=== PATIENT | male | born 1975 | race Caucasian/White ===

== ENCOUNTER 2016-06-04 22:27 | Emergency (ER) | payer OTHER ==
--- NOTE | 2016-06-04 23:17 | ED CLINICAL REPORT ---
Clinical Report - Physicians/Mid Levels [address] [place] [address] 06/04/2016 22:29 Patient: SAMEER FLORES Time Seen: 2305. Arrived- By private vehicle. Historian- patient. HISTORY OF PRESENT ILLNESS Chief Complaint: Injury to left knee. The injury happened today. Occurred at home. The patient sustained a laceration from a sharp edge. Patient is not experiencing pain. Patient denies injury to the head or neck. No other injury. (states he accidentally cut himself.). REVIEW OF SYSTEMS The patient sustained a laceration. No weakness, numbness or suspected foreign body. All systems otherwise negative, except as recorded above. PAST HISTORY See nurses notes. Tetanus immunization status is up-to-date. Medications: None. Allergies: Sulfa Antibiotics. ADDITIONAL NOTES The nursing notes have been reviewed. PHYSICAL EXAM Vital Signs: 06/04/2016 22:33 BP: 117/64. HR: 72. RR: 15. O2 saturation: 97%. Temp: 98.5 F. Ferguson-Stanford pain scale: 4/10. Blood pressure normal. Oxygen saturation normal. Appearance: Alert. Oriented X3. No acute distress. CVS: Normal heart rate and rhythm. Heart sounds normal. Pulses normal. Respiratory: No respiratory distress. Breath sounds normal. Chest nontender. Skin: Skin intact. Skin warm and dry. Normal skin color. Normal skin turgor. Extremities: (full thickness laceration that is 0.5 cm in length over the tibial prominence. linear. regular shaped. no fb. no bleeding. wound edges approximate well at rest. no gross contamination. neurovasc intact distal to injury. no involvement of joint.). Extremities otherwise negative. Gait: Normal gait. Neuro, Vascular and Tendons: Vascular status intact. Sensation intact. Motor intact. Tendon function intact. No sensory deficit. Neuro: No motor deficit. No sensory deficit. CLINICAL IMPRESSION Single deep laceration.No foreign body present. INSTRUCTIONS Warnings: GENERAL WARNINGS: Return or contact your physician immediately if your condition worsens or changes unexpectedly, if not improving as expected, or if other problems arise. Specifically return if pain, vomiting, bleeding, breathing difficulty or fever. Your Current Medications: CONTINUE TAKING THE FOLLOWING MEDICATIONS: None*. OTC Medications: Acetaminophen (available over the counter): take according to label instructions. Motrin (available over the counter): take according to label instructions. Follow-up: Return to the emergency department as needed. Follow up with your doctor in three days. Reason for referral: recheck today's concerns. Summary of care provided to patient via paper. Screening today revealed the patient's blood pressure to be in the normal range. The patient should follow up with a primary care provider for blood pressure management. Understanding of the discharge instructions verbalized by patient. (Electronically signed by Skyler Baker Dr. 06/10/2016 17:58)
--- NOTE | 2016-06-04 23:17 | ED NURSING NOTES ---
Clinical Report - Nurses [facility] [address] [place] [address] 06/04/2016 22:29 [id number] Triage time 22:33. Acuity: LEVEL 4. Chief Complaint: INJURY TO LEFT KNEE. Alert. No acute distress. --22:36 Keila Burns R.N. 22:33 06/04/16. BP: 117/64. HR: 72. RR: 15. O2 saturation: 97%. Temp: 98.5 F (oral). Ferguson-Stanford pain scale: 4/10. --22:36 Keila Burns R.N. Weight: 77.1 kg stated. Height/Length: 68 inches Per Patient. BMI: 25.9. --22:36 Keila Burns R.N. Medications None. --22:33 Keila Burns R.N. Allergies Sulfa Antibiotics. --22:33 Keila Burns R.N. History Arrived by private vehicle. Historian: patient. Primary physician (Natropathic). 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 He sustained a laceration from a sharp edge. Treatment WEAVE DEFECT CHARTING CLERK: None. PAST MEDICAL HX: Tetanus status: up-to-date. SOCIAL HX: Never smoker. History of occasional drug use: marijuana. No alcohol use. NUTRITIONAL RISK ASSESSMENT: The nutritional risk assessment revealed no deficiencies. FUNCTIONAL ASSESSMENT: Functional assessment: no impairments noted. --22:36 Keila Burns R.N. ADDITIONAL SURGERIES: Tonsillectomy. --22:34 Keila Burns R.N. Interventions ID band on patient. To treatment room. --22:36 Keila Burns R.N. PHYSICAL ASSESSMENT Ambulatory to room. Patient gowned. GENERAL / NEURO / PSYCH: Oriented X 4. Alert. Appears in no acute distress. EXTREMITIES: Capillary refill is less than 2 seconds in the extremities. Left knee: laceration with controlled bleeding. SKIN: Skin is warm and dry. --22:37 Keila Burns R.N. NURSING PROGRESS NOTES Two patient identifiers checked. Call light placed in reach. Side rails up x 1. Bed placed in lowest position. Brakes of bed on. Patient ready for evaluation- chart flagged. --22:37 Keila Burns R.N. Wound cleansed with sterile saline. 1/" steri-strips applied to wound on left knee by nurse. ( Steri-strip care & instructions reviewed with pt, pt states understanding.). --23:12 Keila Burns R.N. DISPOSITION / DISCHARGE 23:22 06/04/16. Departure time: 23:Jun 04 2016. Condition at departure: improved and stable. The goals identified in the patient's plan of care were met. No learning barriers present. Patient verbalized understanding. Written instructions provided in [place]. The patient was discharged home and unaccompanied at time of discharge. He left the Emergency Department ambulatory and via private vehicle. Patient driving. FALL RISK ASSESSMENT: Fall risk assessment completed. No fall risk identified. --23:22 Brittany Ramos R.N. 22:33 06/04/16. BP: 117/64. HR: 72. RR: 15. O2 saturation: 97%. Temp: 98.5 F (oral). Ferguson-Stanford pain scale: 4/10. --23:22 Brittany Ramos R.N. Locked/Released at 06/04/2016 23:22 by Brittany Ramos R.N.
--- NOTE | 2016-06-04 23:17 | ED NURSING NOTES ---
Clinical Report - Nurses [facility] [address] [place] [address] 06/04/2016 22:29 [id number] Triage time 22:33. Acuity: LEVEL 4. Chief Complaint: INJURY TO LEFT KNEE. Alert. No acute distress. --22:36 Keila Burns R.N. 22:33 06/04/16. BP: 117/64. HR: 72. RR: 15. O2 saturation: 97%. Temp: 98.5 F (oral). Ferguson-Stanford pain scale: 4/10. --22:36 Keila Burns R.N. Weight: 77.1 kg stated. Height/Length: 68 inches Per Patient. BMI: 25.9. --22:36 Keila Burns R.N. Medications None. --22:33 Keila Burns R.N. Allergies Sulfa Antibiotics. --22:33 Keila Burns R.N. History Arrived by private vehicle. Historian: patient. 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 Treatment ARCHITECTURAL ASSOCIATE: None. PAST MEDICAL HX: Tetanus status: up-to-date. SOCIAL HX: Never smoker. History of occasional drug use: marijuana. No alcohol use. NUTRITIONAL RISK ASSESSMENT: The nutritional risk assessment revealed no deficiencies. FUNCTIONAL ASSESSMENT: Functional assessment: no impairments noted. --22:36 Keila Burns R.N. ADDITIONAL SURGERIES: Tonsillectomy. --22:34 Keila Burns R.N. Interventions ID band on patient. To treatment room. --22:36 Keila Burns R.N. PHYSICAL ASSESSMENT Ambulatory to room. Patient gowned. GENERAL / NEURO / PSYCH: Oriented X 4. Alert. Appears in no acute distress. EXTREMITIES: Capillary refill is less than 2 seconds in the extremities. Left knee: laceration with controlled bleeding. SKIN: Skin is warm and dry. --22:37 Keila Burns R.N. NURSING PROGRESS NOTES Two patient identifiers checked. Call light placed in reach. Side rails up x 1. Bed placed in lowest position. Brakes of bed on. Patient ready for evaluation- chart flagged. --22:37 Keila Burns R.N. Wound cleansed with sterile saline. 1/" steri-strips applied to wound on left knee by nurse. ( Steri-strip care & instructions reviewed with pt, pt states understanding.). --23:12 Keila Burns R.N. DISPOSITION / DISCHARGE 23:22 06/04/16. Departure time: 23:Jun 04 2016. Condition at departure: improved and stable. The goals identified in the patient's plan of care were met. No learning barriers present. Patient verbalized understanding. Written instructions provided in Turkmen. The patient was discharged home and unaccompanied at time of discharge. He left the Emergency Department ambulatory and via private vehicle. Patient driving. FALL RISK ASSESSMENT: Fall risk assessment completed. No fall risk identified. --23:22 Brittany Ramos R.N. 22:33 06/04/16. BP: 117/64. HR: 72. RR: 15. O2 saturation: 97%. Temp: 98.5 F (oral). Ferguson-Stanford pain scale: 4/10. --23:22 Brittany Ramos R.N. Locked/Released at 06/04/2016 23:22 by Brittany Ramos R.N.
--- NOTE | 2016-06-04 23:17 | ED ORDER SUMMARY ---
..... Patient: SAMEER FLORES OrderSheet [facility] VisitID: [id number] [place] [address] 41y, M Registration Date/Time: 06/04/2016 ORDER SHEET Weight: 77.1 kg (stated) Allergies: Sulfa Antibiotics GENERAL ORDERS: Wound Irrigation (apply steri-strips after irrigation.) (23:10 06/04/2016 Jayant Joseph verbal order read back to Guille Mejia) (23:10 Jayant PerezNSonali) Dress Wounds (steri strips) (23:15 06/04/2016 Guille Mejia) (23:15 Jayant Joseph) Irrigate Wounds (23:15 06/04/2016 Guille Mejia) (23:15 Jayant Grajeda.) MEDICATION ORDERS: IV FLUIDS: ORDER SHEET NOTES: [Electronically signed by Brittany Ramos R.N. (23:22 06/04/2016)] [Electronically signed by Skyler Baker Dr. (17:58 06/10/2016)] [Electronically locked/signed by Brittany Ramos R.N. (23:22 06/04/2016)]
--- NOTE | 2016-06-04 23:17 | ED ORDER SUMMARY ---
..... Patient: SAMEER FLORES OrderSheet [facility] VisitID: [id number] [place] [address] 41y, M Registration Date/Time: 06/04/2016 ORDER SHEET Weight: 77.1 kg (stated) Allergies: Sulfa Antibiotics GENERAL ORDERS: Wound Irrigation (apply steri-strips after irrigation.) (23:10 06/04/2016 Jayant Joseph verbal order read back to Guille Mejia) (23:10 Jayant PerezNSonali) Dress Wounds (steri strips) (23:15 06/04/2016 Guille Mejia) (23:15 Jayant Joseph) Irrigate Wounds (23:15 06/04/2016 Guille Mejia) (23:15 Jayant Grajeda.) MEDICATION ORDERS: IV FLUIDS: ORDER SHEET NOTES: [Electronically signed by Brittany Ramos R.N. (23:22 06/04/2016)] [Electronically signed by Skyler Baker Dr. (17:58 06/10/2016)] [Electronically locked/signed by Brittany Ramos R.N. (23:22 06/04/2016)]
--- NOTE | 2016-06-04 23:17 | ED CLINICAL REPORT ---
Clinical Report - Physicians/Mid Levels [facility] [address] [place] [address] 06/04/2016 22:29 Patient: SAMEER FLORES Time Seen: 2305. Arrived- By private vehicle. Historian- patient. HISTORY OF PRESENT ILLNESS Chief Complaint: Injury to left knee. The injury happened today. Occurred at home. The patient sustained a laceration from a sharp edge. Patient is not experiencing pain. Patient denies injury to the head or neck. No other injury. (states he accidentally cut himself.). REVIEW OF SYSTEMS The patient sustained a laceration. No weakness, numbness or suspected foreign body. All systems otherwise negative, except as recorded above. PAST HISTORY See nurses notes. Tetanus immunization status is up-to-date. Medications: None. Allergies: Sulfa Antibiotics. ADDITIONAL NOTES The nursing notes have been reviewed. PHYSICAL EXAM Vital Signs: 06/04/2016 22:33 BP: 117/64. HR: 72. RR: 15. O2 saturation: 97%. Temp: 98.5 F. Ferguson-Stanford pain scale: 4/10. Blood pressure normal. Oxygen saturation normal. Appearance: Alert. Oriented X3. No acute distress. CVS: Normal heart rate and rhythm. Heart sounds normal. Pulses normal. Respiratory: No respiratory distress. Breath sounds normal. Chest nontender. Skin: Skin intact. Skin warm and dry. Normal skin color. Normal skin turgor. Extremities: (full thickness laceration that is 0.5 cm in length over the tibial prominence. linear. regular shaped. no fb. no bleeding. wound edges approximate well at rest. no gross contamination. neurovasc intact distal to injury. no involvement of joint.). Extremities otherwise negative. Gait: Normal gait. Neuro, Vascular and Tendons: Vascular status intact. Sensation intact. Motor intact. Tendon function intact. No sensory deficit. Neuro: No motor deficit. No sensory deficit. CLINICAL IMPRESSION Single deep laceration.No foreign body present. INSTRUCTIONS Warnings: GENERAL WARNINGS: Return or contact your physician immediately if your condition worsens or changes unexpectedly, if not improving as expected, or if other problems arise. Specifically return if pain, vomiting, bleeding, breathing difficulty or fever. Your Current Medications: CONTINUE TAKING THE FOLLOWING MEDICATIONS: None*. OTC Medications: Acetaminophen (available over the counter): take according to label instructions. Motrin (available over the counter): take according to label instructions. Follow-up: Return to the emergency department as needed. Follow up with your doctor in three days. Reason for referral: recheck today's concerns. Summary of care provided to patient via paper. Screening today revealed the patient's blood pressure to be in the normal range. The patient should follow up with a primary care provider for blood pressure management. Understanding of the discharge instructions verbalized by patient. (Electronically signed by Skyler Baker Dr. 06/10/2016 17:58)
--- NOTE | 2016-06-10 17:58 | ED MED RECONCILIATION SUMMARY ---
Patient: SAMEER FLORES Medication Reconciliation Report [facility] VisitID: [id number] [address] [place] [address] 41y, M Registration Date/Time: 06/04/2016 Weight: 77.1 kg Height/Length: 68 in. BMI: 25.9 ALLERGIES: Sulfa Antibiotics The patient's Home Medications are listed below: NONE. The source(s) of the original Home Medication information: Not obtained. The following Medications were given to the patient in the Emergency Department: None. The following Medications were prescribed to the patient: Acetaminophen (available over the counter): take according to label instructions. -- Skyler Baker Dr. Motrin (available over the counter): take according to label instructions. -- Skyler Baker Dr.
--- NOTE | 2016-06-10 17:58 | ED DISCHARGE INSTRUCTIONS ---
Patient: SAMEER FLORES General Instructions [facility] VisitID: [id number] [place] [address] 41y, M Registration Date/Time: 06/04/2016 Single deep laceration.No foreign body present. INSTRUCTIONS Warnings: GENERAL WARNINGS: Return or contact your physician immediately if your condition worsens or changes unexpectedly, if not improving as expected, or if other problems arise. Specifically return if pain, vomiting, bleeding, breathing difficulty or fever. Your Current Medications: CONTINUE TAKING THE FOLLOWING MEDICATIONS: None*. OTC Medications: Acetaminophen (available over the counter): take according to label instructions. Motrin (available over the counter): take according to label instructions. Follow-up: Return to the emergency department as needed. Follow up with your doctor in three days. Reason for referral: recheck today's concerns. Summary of care provided to patient via paper. Screening today revealed the patient's blood pressure to be in the normal range. The patient should follow up with a primary care provider for blood pressure management. Understanding of the discharge instructions verbalized by patient. ADDITIONAL INFORMATION Laceration (All Closures) Alaceration is a cut through the skin. This will usually require stitches (sutures) or moses if it is deep. Minor cuts may be treated with a surgical tape closure orskin glue. Home care The following guidelines will help you care for your laceration at home: Extremity, face, or trunk wounds Keep the wound clean and dry. If a bandage was applied and it becomes wet or dirty, replace it. Otherwise, leave it in place for the first 24 hours. If stitches or moses were used, clean the wound daily. After removing the bandage, wash the area with soap and water. Use a wet cotton swab to loosen and remove any blood or crust that forms. The doctor may prescribe an antibiotic cream or ointment to prevent infection. Do not stop taking this medication until you have finished the prescribed course or the doctor tells you to stop. The doctor may also prescribe medications for pain. Follow the doctors instructions for taking these medications. You may remove the bandage to shower as usual after the first 24 hours, but do not soak the area in water (no swimming) until the stitches or moses are removed. If surgical tape was used, keep the area clean and dry. If it becomes wet, blot it dry with a towel. If skin glue was used, do not scratch, rub, or pick at the adhesive film. Do not place tape directly over the film. Do not apply liquid, ointment, or creams to the wound while the film is in place. Do not clean the wound with peroxide and do not apply ointments. Avoid activities that cause heavy sweating until the film has fallen off. Protect the wound from prolonged exposure to sunlight or tanning lamps. You may shower as usual but do not soak the wound in water (no baths or swimming). The film will fall off by itself in 510 days. Scalp wounds During the first two days, you may carefully rinse your hair in the shower to remove blood, glass or dirt particles. After two days, you may shower and shampoo your hair normally. Do not soak your scalp in the tub or go swimming until the stitches or moses have been removed. Talk with your doctor before applying any antibiotic ointment to the wound. Mouth wounds Eat soft foods to reduce pain. If the cut is inside of your mouth, clean by rinsing after each meal and at bedtime with a mixture of equal parts water and hydrogen peroxide (do not swallow!). Or, you can use a cotton swab to directly apply hydrogen peroxide onto the cut. Mouth wounds can be painful when eating. You may use an [id number] local numbing solution for pain relief. If this is not available, you may use any numbing solution for teething babies. You may apply this directly to the sores with a cotton-tip swab or with your finger. Follow-up care Follow up with your health care provider. Most skin wounds heal within ten days. Mouth and facial wounds heal within five days. However, even with proper treatment, a wound infection may sometimes occur. Therefore, you should check the wound daily for signs of infection listed below. Stitches should be removed from the face within five days; stitches and moses should be removed from other parts of the body within 714 days. If dissolving stitches were used in the mouth, these will fall out or dissolve without the need for removal. If tape closures were used, remove them yourself if they have not fallen off after 7 days. Ifskin glue was used, the film will fall off by itself in 510 days. When to seek medical care Get prompt medical attention if any of these occur: Bleeding not controlled by direct pressure Signs of infection, including increasing pain in the wound, increasing wound redness or swelling, or pus coming from the wound Fever of 100.4F (38C) or higher, or as directed by your health care provider Stitches or moses come apart or fall out or surgical tape falls off before 7 days Wound edges re-open You have been given the following additional information: Laceration, All (Electronically signed by Skyler Baker Dr. 06/10/2016 17:58)
--- NOTE | 2016-06-10 17:58 | ED MAR SUMMARY ---
..... Medication Administration Record [facility] [address] [place], [place] [id number] Patient: SAMEER FLORES Visit ID: [id number] 41y, M Weight: 77.1 kg Height/Length: 68 in BMI: 25.9 ALLERGIES: Sulfa Antibiotics
--- NOTE | 2016-06-10 17:58 | ED MED RECONCILIATION SUMMARY ---
Patient: SAMEER FLORES Medication Reconciliation Report [facility] VisitID: [id number] [address] [place] [address] 41y, M Registration Date/Time: 06/04/2016 Weight: 77.1 kg Height/Length: 68 in. BMI: 25.9 ALLERGIES: Sulfa Antibiotics The patient's Home Medications are listed below: NONE. The source(s) of the original Home Medication information: Not obtained. The following Medications were given to the patient in the Emergency Department: None. The following Medications were prescribed to the patient: Acetaminophen (available over the counter): take according to label instructions. -- Skyler Baker Dr. Motrin (available over the counter): take according to label instructions. -- Skyler Baker Dr.
--- NOTE | 2016-06-10 17:58 | ED MAR SUMMARY ---
..... Medication Administration Record [facility] [address] [place], [place] [id number] Patient: SAMEER FLORES Visit ID: [id number] 41y, M Weight: 77.1 kg Height/Length: 68 in BMI: 25.9 ALLERGIES: Sulfa Antibiotics
== END 2016-06-04 23:22 | disposition home or self-care (01) ==
LOC: ED SRH 22:27
DX: S81.012A Laceration without foreign body, left knee, initial encounter (principal); W45.8XXA Other foreign body or object entering through skin, initial encounter; Y93.9 Activity, unspecified; Y92.009 Unspecified place in unspecified non-institutional (private) residence as the place of occurrence of the external cause; Y99.9 Unspecified external cause status